=== PATIENT | male | born 1960 | race Caucasian/White ===

== ENCOUNTER → 2017-11-27 | Outpatient (CLI) | payer MEDICAID ==
[~2017-11-27] MED LIST: AMBIEN 10 MG TA10 MG PO; AMYLASE PO; ASPIR 8181 MG PO; BLOOD PRESSURE MED; DILAUDID 2 MG TA2 MG PO; EXCEDRIN; FLOMAX; FOLIC ACID1 MG PO; GLUCOPHAGE500 MG PO; HYDROCODON-ACE1 EAC7 PO; KEPPRA 500 MG500 M1 PO; LANTUS100 UNIT/M SUBQ; LEVAQUIN 500 M500 M1 PO; LEVEMIR SUBQ; LIPASE PO; LIPITOR10 MG PO; LISINOPRIL20 MG PO; LISINOPRIL5 MG PO; LORTAB 10-3251 EACH PO; METFORMIN; NAPROXEN; NEURONTIN600 MG PO; NICOTINE TRANSD21 M1 TRANSDERM; NOVOLOG100 UNIT/1 SUBQ; OMEPRAZOLE40 MG PO; PANCREAZE DR 11 EAC2 PO; PERCOCET 5-3251 EACH PO; PERCOCET PO; PHENERGAN 25 MG25 M1 PO; TAMSULOSIN HCL0.4 M1 PO; TRAMADOL 50 MG50 MG PO; TRINATE TABLET1 TAB PO; VITAMIN B-1100 M1 PO; ZENPEP DR 10,01 EACH PO; [UNRECOGNIZED DRUG - OTHER] PO; [UNRECOGNIZED DRUG - REMARK]
== END ==
LOC: M.RAD 09:44
DX: R13.12 Dysphagia, oropharyngeal phase (principal); C76.0 Malignant neoplasm of head, face and neck

== ENCOUNTER 2017-12-03 17:58 | Emergency (ER) | payer MEDICAID ==
[~2017-12-03] VITALS: Ht 185.4 cm; Wt 56.2 kg
[2017-12-03 19:40] LABS: ABSOLUTE BASOPHILS 0.1 thou/uL (0.0-0.2); ABSOLUTE EOSINOPHILS 0.1 thou/uL (0.0-0.7); ABSOLUTE LYMPHOCYTES 2.6 thou/uL (0.8-5.3); ABSOLUTE MONOCYTES 0.7 thou/uL (0.0-1.2); ABSOLUTE NEUTROPHILS 9.9 thou/uL (1.6-8.1); EOSINOPHILS 0.8 %; HEMATOCRIT 38.1 % (42.0-52.0); HEMOGLOBIN 12.3 gm/dL (14.0-18.0); LYMPHOCYTES 19.5 %; MCHC 32.3 g/dL (28.0-37.0); MCV 92.8 fL (80.0-100.0); MONOCYTES 5.5 %; MPV 9.7 fl. (7.2-11.1); NUCLEATED RBCS 0 /100WBC; PLATELET COUNT* 479 thou/uL (150-400); POLYS 73.2 %; RBC 4.11 mil/uL (4.50-6.00); RDW-CV 14.2 % (10.5-14.5); WBC 13.5 thou/uL (4.0-11.0)
[2017-12-03 19:50] LABS: APTT 29.5 Seconds (25.0-31.3); INR 1.1; PROTIME 10.4 Seconds (9.20-11.50)
[2017-12-03 19:55] LABS: CALCIUM 9.2 mg/dL (8.5-10.1); CREATININE 0.7 mg/dL (0.6-1.3); POTASSIUM 4.1 mmol/L (3.5-5.1)
[2017-12-03 19:59] LABS: TOTAL BILIRUBIN 0.4 mg/dL (<0.1-1.0); TOTAL PROTEIN 7.6 g/dL (6.4-8.2)
[2017-12-03 21:35] VITALS: BP 116/71
== END 2017-12-03 21:37 | disposition home or self-care (01) ==
LOC: M.ERS 17:58
PROVIDERS: Nurse Practitioner Family
DX: G89.18 Other acute postprocedural pain (principal); R10.12 Left upper quadrant pain; E10.8 Type 1 diabetes mellitus with unspecified complications; I10 Essential (primary) hypertension; J45.909 Unspecified asthma, uncomplicated; F17.210 Nicotine dependence, cigarettes, uncomplicated; Z88.1 Allergy status to other antibiotic agents

== ENCOUNTER → 2017-12-03 | Outpatient (CLI) | payer MEDICAID ==
[~2017-12-03] VITALS: Ht 185.4 cm; Wt 54.4 kg
[2017-12-03 12:50] LABS: HEMATOCRIT 39.1 % (42.0-52.0); HEMOGLOBIN 12.9 gm/dL (14.0-18.0); MCH 30.6 pg (26.0-34.0); MCHC 33.1 g/dL (28.0-37.0); MCV 92.5 fL (80.0-100.0); MPV 8.6 fl. (7.2-11.1); RBC 4.22 mil/uL (4.50-6.00); RDW-CV 14.1 % (10.5-14.5); WBC 10.1 thou/uL (4.0-11.0)
[2017-12-03 12:58] LABS: CALCIUM 9.4 mg/dL (8.5-10.1); CREATININE 0.6 mg/dL (0.6-1.3); POTASSIUM 4.3 mmol/L (3.5-5.1)
[2017-12-03 13:00] LABS: INR 1.1; PROTIME 10.4 Seconds (9.20-11.50)
[2017-12-03 13:03] LABS: TOTAL BILIRUBIN 0.4 mg/dL (<0.1-1.0); TOTAL PROTEIN 7.6 g/dL (6.4-8.2)
[2017-12-03 13:04] VITALS: BP 107/74
[2017-12-03 16:10] VITALS: BP 119/79
== END | disposition home or self-care (01) ==
LOC: M.INT 11-29 14:35
PROVIDERS: Radiology Diagnostic Radiology
DX: Z45.2 Encounter for adjustment and management of vascular access device (principal); C09.9 Malignant neoplasm of tonsil, unspecified; I10 Essential (primary) hypertension; E10.11 Type 1 diabetes mellitus with ketoacidosis with coma; E78.00 Pure hypercholesterolemia, unspecified; J45.909 Unspecified asthma, uncomplicated; E78.1 Pure hyperglyceridemia; F17.210 Nicotine dependence, cigarettes, uncomplicated; Z87.19 Personal history of other diseases of the digestive system; Z98.890 Other specified postprocedural states; Z79.4 Long term (current) use of insulin; Z79.899 Other long term (current) drug therapy; Z88.2 Allergy status to sulfonamides; Z79.891 Long term (current) use of opiate analgesic; Z79.01 Long term (current) use of anticoagulants

== ENCOUNTER → 2018-02-15 | Outpatient (CLI) | payer MEDICAID ==
[2018-02-15 13:27] VITALS: BP 102/70; BP 104/66; BP 106/65
--- NOTE | 2018-02-15 15:48 | NUR ---
BLOOD TRANSFUSION COMPLETED WITHOUT DIFFICULTIES. PATIENT DENIES CONCERNS. VS REMAIN STABLE. RT CHEST PORTACATH FLUSHED WITH NS 20MLS FOLLOWED BY HEPARIN 5MLS OF 100UNIT/ML SOLUTION. PORT THEN DEACCESSED AND BANDAID APPLIED. DISCUSSED DISCHARGE INSTRUCTIONS WITH PATIENT. PATIENT THEN DEPARTS BY WHEELCHAIR WITH FAMILY TO DRIVE HIM HOME AT 1557.
== END ==
LOC: M.INFUS 12:56
DX: C09.9 Malignant neoplasm of tonsil, unspecified (principal); D64.9 Anemia, unspecified; R53.1 Weakness